=== PATIENT | female | born 1960 | race Caucasian/White ===

== ENCOUNTER 2017-10-21 19:11 | Emergency (ER) | payer MEDICAID ==
[~2017-10-21] VITALS: Ht 172.7 cm; Wt 108.9 kg
[2017-10-21] MEDS ORDERED: PRINIVIL20 MG (19:29)
[2017-10-21] MEDS ORDERED: PROZAC20 MG (19:30)
[2017-10-21] MEDS ORDERED: NORVASC10 MG (19:30)
[2017-10-21] MEDS ORDERED: CELEBREX 200 M200 M1 (19:31)
[2017-10-21] MEDS ORDERED: PANTOPRAZOLE SO40 M1 (19:31)
[2017-10-21] MEDS ORDERED: BENTYL 20 MG TA20 M1 (19:31)
[2017-10-21] MEDS ORDERED: NEURONTIN 300300 M1 (19:32)
[2017-10-21 19:47] LABS: ABSOLUTE BASOPHILS 0.1 thou/uL (0.0-0.2); ABSOLUTE EOSINOPHILS 0.2 thou/uL (0.0-0.7); ABSOLUTE LYMPHOCYTES 3.2 thou/uL (0.8-5.3); ABSOLUTE MONOCYTES 0.4 thou/uL (0.0-1.2); ABSOLUTE NEUTROPHILS 4.9 thou/uL (1.6-8.1); BASOPHILS 0.6 %; EOSINOPHILS 2.6 %; HEMATOCRIT 41.9 % (37.0-47.0); HEMOGLOBIN 14.2 gm/dL (12.0-15.0); LYMPHOCYTES 36.5 %; MCH 28.5 pg (26.0-34.0); MCHC 33.9 g/dL (28.0-37.0); MCV 84.3 fL (80.0-100.0); MONOCYTES 4.5 %; NUCLEATED RBCS 0 /100WBC; PLATELET COUNT* 249 thou/uL (150-400); POLYS 55.8 %; RBC 4.97 mil/uL (4.20-5.00); RDW-CV 13.4 % (10.5-14.5); WBC 8.7 thou/uL (4.0-11.0)
[2017-10-21 19:57] LABS: ANION GAP 8 mmol/L (7-16); BUN 12 mg/dL (7-18); CALCIUM 8.7 mg/dL (8.5-10.1); CHLORIDE 104 mmol/L (98-107); CO2 28 mmol/L (21-32); CREATININE 0.8 mg/dL (0.6-1.3); GLUCOSE 130 mg/dL (70-99); POTASSIUM 3.8 mmol/L (3.5-5.1); SODIUM 140 mmol/L (136-145)
[2017-10-21 20:08] LABS: ALBUMIN 3.7 g/dL (3.4-5.0); ALKALINE PHOSPHATASE 115 U/L (46-116); LIPASE 129 U/L (73-393); NT-PRO BRAIN NAT PEPTIDE 156 pg/mL (<300); SGOT 22 U/L (15-37); SGPT 37 U/L (30-65); TOTAL BILIRUBIN 0.2 mg/dL (<0.1-1.0); TOTAL PROTEIN 7.5 g/dL (6.4-8.2); TROPONIN-I LEVEL <0.06 ng/mL (<0.06)
[2017-10-21 20:08] LABS: URINE BILIRUBIN NEGATIVE (Negative); URINE BLOOD NEGATIVE (Negative); URINE CLARITY CLEAR; URINE COLOR YELLOW; URINE GLUCOSE-RANDOM NEGATIVE (Negative); URINE KETONES NEGATIVE (Negative); URINE LEUKOCYTES-REFLEX NEGATIVE (Negative); URINE NITRITE-REFLEX NEGATIVE (Negative); URINE PROTEIN NEGATIVE (Negative); URINE UROBILINOGEN 0.2 E.U./dl (0.2-1.0)
[2017-10-21 20:13] LABS: AMP/METHAMP Negative (Negative); BARBITURATES Negative (Negative); BENZODIAZEPINES Negative (Negative); COCAINE Negative (Negative); METHADONE Negative (Negative); OPIATES Negative (Negative); PCP Negative (Negative); THC Negative (Negative)
[2017-10-21] MEDS ORDERED: MECLIZINE HCL12.5 MG PO (21:08)
[2017-10-21 21:23] VITALS: BP 172/73
--- NOTE | 2017-10-22 17:25 | EKG ---
[place] [address] ELECTROCARDIOGRAM REPORT Name: JO BELL Room: [facility]#: [id number] Admission: 10/21/17 Attend Phys: Discharge: 10/21/17 Date of : 60 Report #: [id number] THIS REPORT FOR: //name// [facility] ED Test Date: 2017-10-21 Test Time: 19:22:09 Pat Name: JO BELL Department: Room: Gender: F [employer]: CASE : 1960 Requested By: Griffin Hernandez Order Number: [id number] MD: Dayne Duarte Measurements Intervals Collins Rate: 71 P: 26 OR: 323 QRS: 5 QRSD: 110 T: 19 QT: 424 QTc: 461 Interpretive Statements Sinus rhythm Prolonged OR interval No previous ECG available for comparison Electronically Signed On 10-22-2017 17:25:36 CDT by Dayne Duarte [email or web address] <ELECTRONICALLY SIGNED> By: Dayne Duarte MD, [facility] 10/22/17 1725 1922 21 Dayne Duarte MD, FACC /EPI
== END 2017-10-21 21:43 | disposition home or self-care (01) ==
LOC: M.ERS 19:11
PROVIDERS: Emergency Medicine
DX: R42 Dizziness and giddiness (principal); I10 Essential (primary) hypertension; M19.90 Unspecified osteoarthritis, unspecified site; F32.9 Major depressive disorder, single episode, unspecified; Z88.0 Allergy status to penicillin; Z88.5 Allergy status to narcotic agent; Z88.6 Allergy status to analgesic agent; Z88.8 Allergy status to other drugs, medicaments and biological substances; Z91.040 Latex allergy status; Z90.49 Acquired absence of other specified parts of digestive tract